=== PATIENT | male | born 1965 | race Caucasian/White ===

== ENCOUNTER → 2024-12-12 | Outpatient (CLI) | payer MEDICAID, SELFPAY ==
[2024-12-12 16:50] LABS: Basophils % (Auto) 1 % (0-2.5); Eosinophils # (Auto) 0.1 Thou/mm3 (0.0-0.5); Eosinophils % (Auto) 1 % (0-10); Hematocrit 44.3 % (41.0-53.0); Hemoglobin 14.8 g/dL (13.5-16.0); Immature Granulocytes % (Auto) 0 % (0-0); Immature Granulocytes Auto 0.02 Thou/mm3 (0.00-0.00); Lymphocytes # (Auto) 2.2 Thou/mm3 (1.0-4.8); Lymphocytes % (Auto) 32 % (10-50); Mean Corpuscular HGB Conc 33.4 g/dl (31.0-37.0); Mean Corpuscular Hemoglobin 30.8 pg (25.0-35.0); Mean Corpuscular Volume 92 fL (80-100); Monocytes # (Auto) 0.5 Thou/mm3 (0.0-0.8); Monocytes % (Auto) 7 % (0-12); Neutrophils # (Auto) 4.2 Thou/mm3 (1.8-7.7); Neutrophils % (Auto) 60 % (37-80); Nucleated Red Blood Cell % 0 /100 WBC (0); Platelet Count 253 Thou/mm3 (140-440); RDW Standard Deviation 43.7 fL (35.1-43.9); White Blood Count 6.9 Thou/mm3 (3.8-10.6)
[2024-12-12 17:11] LABS: Alanine Aminotransferase 13 U/L (10-49); Albumin, Serum 4.1 gm/dL (3.4-4.8); Albumin/Globulin Ratio 1.8 (1.2-2.2); Alkaline Phosphatase 80 U/L (46-116); Anion Gap 9 (7-16); Aspartate Amino Transferase 16 U/L (0-34); BUN/Creatinine Ratio 25 Ratio (12-20); Bilirubin,Total 0.6 mg/dL (0.3-1.2); Blood Urea Nitrogen 25 mg/dL (9-23); Calcium 9.3 mg/dL (8.3-10.6); Calcium (Corrected) 9.3 mg/dL (8.5-10.1); Carbon Dioxide 30.5 mMol/L (20.0-31.0); Chloride 101 mMol/L (98-107); Globulin 2.3 gm/dL (2.3-3.5); Glucose 93 mg/dL (74-106); Osmolality,Calculated 283 (275-295); Potassium 4.8 mMol/L (3.4-5.1); Sodium 140 mMol/L (136-145); Total Protein 6.4 gm/dL (5.7-8.2); eGFR > 60 See Note
== END | disposition home or self-care (01) ==
LOC: SCTO 15:37
PROVIDERS: PCP Family Medicine; Referring Provider Internal Medicine Hematology & Oncology; Visit Provider Internal Medicine Hematology & Oncology
DX: C77.0 Secondary and unspecified malignant neoplasm of lymph nodes of head, face and neck (principal)
CPT/HCPCS: 36415; 80053; 83735; 85025

== ENCOUNTER 2024-12-25 11:25 | Outpatient (RCR) | payer MEDICAID, SELFPAY ==
--- NOTE | 2025-01-20 19:58 | CTCFLWUP_ITS ---
Patient: KANCHAN WARD : 1965 Page 6 of 8 FOLLOW UP NOTE DATE OF SERVICE: 12/20/2024 NAME: KANCHAN WARD ACCOUNT: [id number] : 1965 AGE: 59 INTERVAL HISTORY: Shunt was diagnosed with oral cancer with concurrent chemoradiation. Patient did not receive any treatment and now here with request to start him on treatment. Last PET CT scan showed enlarging mass but still localized disease . 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 S/p right carotid triangle lymph node CT-guided biopsy (01/12/2024) Unprovoked right lower extremity DVT (10/07/2023). Patient was on Xarelto which was discontinued few days prior to cervical lymph node biopsy on 01/12/2024. provoked right lower extremity DVT 12 years ago following an injury History of cocaine abuse in the past. Last cocaine abuse was done about 10 years ago. REASON FOR TODAY?S VISIT: This is office follow-up visit. Mr. Ward is here at [facility]. Since last visit he had MRI of the head and neck, PET/CT scan done. He did not have the Chemo-Port placed. He is in the clinic today for follow-up. He complains of slight difficulty clearing his throat at this time. Denies any difficulty speaking or breathing. Denies any difficulty swallowing food. Denies any weight loss or loss of appetite. Has reasonably good energy levels. His main issue at this time is transportation and financial difficulty. 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 He was on Xarelto since October of this year which he stopped in the December due to the biopsy of the neck mass. Currently he is not taking Xarelto. He has history of cocaine abuse for about 10 years. Last time he used cocaine was about 10 years ago. He denies any IV drug abuse. Denies any history of smoking. He started noticing a mass growing on the right side of his neck about a year ago. 10/07/2023: Right lower extremity Doppler ultrasound study?the ultrasound was done due to right lower extremity swelling and pain that started spontaneously. Mr. Ward was started on Xarelto which she stopped few days prior to the neck biopsy on 01/12/2024. 12/14/2023: CT scan of the soft tissue of the neck with IV contrast was done to evaluate swelling in the right neck. 01/12/2024: CT-guided percutaneous biopsy of the enlarged right carotid triangle lymph node was performed. 02/07/2024: CT scan of the chest abdomen and pelvis with IV contrast 02/29/2024: MRI of the orbits, face and neck with and without contrast? 03/01/2024: Echocardiogram?LVEF 65%. 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 Tobacco Use:?Denies - Second hand smoke exposure ETOH?Use:?Socially Drug?Note:?Cocaine x 10 yrs - Quit 30 yrs ago Social?History?Note:?Lives?with? MEDICATIONS: 1. HYDROcodone-acetaminophen - 7.5-500 mg tab As directed 2. HYDROcodone-acetaminophen - 10-325 mg 1 tab q6 3. ibuprofen - 800 mg 1 tab Every 8 Hours 4. traZODone - 100 mg 2 tab Every day before sleep 5. Xarelto - 20 mg 1 tab Daily Medications Last Reconciled by Lola Porter MA on 12/20/2024 ALLERGIES: No Known Drug Allergies REVIEW OF SYSTEMS: A complete 14-point review of systems was performed and is negative except as noted in interval history. PHYSICAL EXAMINATION: VITAL SIGNS: Temperature?99, B/P?144/83, Oxygen?Saturation?95% Weight?178?lbs PAIN: 8 - Very severe pain ECOG Performance Status: 0 - Asymptomatic and fully active GENERAL APPEARANCE: Appears well, in no apparent distress, appropriately interactive. HEENT: Normocephalic, no temporal wasting, normal conjunctiva, no scleral icterus, normal hearing, lips without lesions, neck normal range of motion. CARDIOVASCULAR: Not assessed. PULMONARY: Normal respiratory effort, no respiratory distress or use of accessory muscles, speaking in full sentences, no tachypnea. EXTREMITIES: No pedal edema or cyanosis. SKIN: Normal skin appearance. NEUROLOGIC: Alert and oriented x4. PSHYCHIATRIC: Appropriate affect, mood normal, behavior normal, intact thought and speech. LABORATORY DATA: I have personally reviewed and interpreted each of the patient?s relevant lab tests, abnormal findings are below: Date 02/08/24 12/12/24 ??WHITE?BLOOD?COUNT?(Thou/mm3) 6.1 6.9 ??RED?BLOOD?COUNT?(Miln/mm3) 5.12 4.80 ??HEMOGLOBIN?(gm/dl) 15.3 14.8 ??HEMATOCRIT?(%) 44.5 44.3 ??PLATELET?COUNT?(Thou/mm3) 240 253 ??NEUTROPHILS?%,?AUTO?(%) 59 60 ??LYMPH?%,?AUTO?(%) 32 32 ??NEUTROPHILS,?AUTO?(Thou/mm3) 3.6 4.2 ??GLUCOSE,RANDOM?(mg/dL) ? 93 ??BLOOD?UREA?NITROGEN?(mg/dL) ? 25?H ??CREATININE?(mg/dL) ? 1.00 ??SODIUM?(mmol/L) ? 140 ??POTASSIUM?(mmol/L) ? 4.8 ??CHLORIDE?(mmol/L) ? 101 ??CrCl?(CandG)?(ml/min) ? 90.38 ??AST/SGOT?(Unit/L) ? 16 ??ALT/SGPT?(Unit/L) ? 13 ??ALKALINE?PHOSPHATASE?(Unit/L) ? 80 ??BILIRUBIN,?TOTAL?(mg/dL) ? 0.6 ??PROTEIN?TOTAL?(gm/dl) ? 6.4 ??ALBUMIN,?SERUM?(gm/dl) ? 4.1 ??GLOBULIN?(gm/dl) ? 2.3 ??ALBUMIN/GLOBULIN?RATIO ? 1.8 ??CALCIUM,?SERUM?(mg/dL) ? 9.3 ??CALCIUM?SERUM?(CORRECTED)?(mg/dL) ? 9.3 ??MAGNESIUM?(mg/dL) ? 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 S/p right carotid triangle lymph node CT-guided biopsy (01/12/2024) Unprovoked right lower extremity DVT (10/07/2023). Patient was on Xarelto which was discontinued few days prior to cervical lymph node biopsy on 01/12/2024. provoked right lower extremity DVT 12 years ago following an injury History of cocaine abuse in the past. Last cocaine abuse was done about 10 years ago. 1. guest services director consultation. 2. Advised him to get the Chemo-Port placed as soon as possible. 3. Continue Xarelto 20 mg p.o. daily 4. Will start him on chemoradiation as soon as the Chemo-Port is placed.. ORDERS: Order # Description [id number] Ferritin + Iron Panel + Vitamin B-12 + Folic Acid; Serum [id number] Follow Up 4 Week [id number] Refer To: + Stenotypist RETURN TO CLINIC: BILLING AND COMPLIANCE: I reviewed external records from providers outside my specialty as summarized above. I spent a total of 50 minutes on this patient?s care on the day of their visit excluding time spent related to any billed procedures. This time includes time spent with the patient as well as time spent documenting in the medical record, reviewing patients records and tests, obtaining history, placing orders, communicating with other healthcare professionals, counseling the patient, family or caregiver, and/or care coordination for the diagnoses above. Electronically Signed by: Priyank Hernandez MD T: 7:55 PM CC: PCP: Referring: Priyank Hernandez This document was completed utilizing speech recognition software. Grammatical errors, random word insertions, pronoun errors, and incomplete sentences are an occasional consequence of this system due to software limitations, ambient noise, and hardware issues. Any formal questions or concerns about the content, text or information contained within the body of this dictation should be directly addressed to the provider for clarification.
== END 2024-12-31 23:59 | disposition home or self-care (01) ==
LOC: SCTC 11:25
PROVIDERS: PCP Family Medicine; Referring Provider Internal Medicine Hematology & Oncology; Visit Provider Internal Medicine Hematology & Oncology
DX: C77.0 Secondary and unspecified malignant neoplasm of lymph nodes of head, face and neck (principal); Z86.718 Personal history of other venous thrombosis and embolism; Z79.01 Long term (current) use of anticoagulants
CPT/HCPCS: 99212; 99213; G0463

== ENCOUNTER 2025-02-27 09:36 | Outpatient (RCR) | payer MEDICAID, SELFPAY ==
--- NOTE | 2025-02-27 10:31 | CTCFLWUP_ITS ---
[facility] [address] [place], [place] [address] FOLLOW-UP NOTE Date: 02/27/2025 MR#: [id number] Name: KANCHAN ALLRED : 1965 Dx: C77.0 Secondary and unspecified malignant neoplasm of lymph nodes of head, face and neck Patient with likely stage IV oropharyngeal CA elected to not seek any treatment when initially diagnosed 1 year ago. Patient is having increased pain continued weight loss. Would like to be considered for hospice and I will make the referral today. Electronically signed by: Osmin Enriquez M.D. 02/27/2025 10:28 AM
== END 2025-03-02 23:59 | disposition home or self-care (01) ==
LOC: SCTC 09:36
PROVIDERS: PCP Family Medicine; Referring Provider Family Medicine; Visit Provider Radiology Therapeutic Radiology
DX: C77.0 Secondary and unspecified malignant neoplasm of lymph nodes of head, face and neck (principal)
CPT/HCPCS: 99212; G0463